=== PATIENT | male | born 1990 | race Caucasian/White ===

== ENCOUNTER 2019-06-24 12:19 | Emergency (ER) | payer OTHER ==
[2019-06-24 12:25] VITALS: BP 132/90; PULSE 113; RESP 18; TEMP 98.1
--- NOTE | 2019-06-24 12:52 | ED ---
Skin/Abscess/FB HPI - General Chief complaint: Skin/Abscess/Foreign Body Stated complaint: blotches on foot Time Seen by Provider: 06/24/19 12:37 Source: patient, RN notes reviewed Mode of arrival: ambulatory Limitations: no limitations - History of Present Illness Initial comments: 28-year-old male presents emergency Department chief complaint of rash his right foot. Patient states started over the last 24 hours states is minimally itchy but denies pain, fevers, chills or any trauma. He states it's just proximal to his toes the top of his foot. Patient does admit that he works in [employer] and states that he is exposed to oils and transmission fluids but states that he always showers did not get anything on his feet. - Related Data Previous Rx's Medication Instructions Recorded Clotrimazole/Betamethasone Dip 1 applic TOPICAL BID #45 gm 06/24/19 [Lotrisone Cream] Allergies Allergy/AdvReac Type Severity Reaction Status Date / Time amoxicillin Allergy Rash/Hives Verified 06/24/19 12:26 Review of Systems ROS Statement: Those systems with pertinent positive or pertinent negative responses have been documented in the HPI. ROS Other: All systems not noted in ROS Statement are negative. Past Medical History Past Medical History: No Reported History History of Any Multi-Drug Resistant Organisms: None Reported Past Surgical History: No Surgical Hx Reported Past Psychological History: PTSD Smoking Status: Current every day smoker Past Alcohol Use History: None Reported Past Drug Use History: Marijuana General Exam Limitations: no limitations General appearance: alert, in no apparent distress Head exam: Present: atraumatic, normocephalic, normal inspection Eye exam: Present: normal appearance, PERRL, EOMI. Absent: scleral icterus, conjunctival injection, periorbital swelling ENT exam: Present: normal exam, mucous membranes moist Neck exam: Present: normal inspection. Absent: tenderness, meningismus, lymphadenopathy Respiratory exam: Present: normal lung sounds bilaterally. Absent: respiratory distress, wheezes, rales, rhonchi, stridor Cardiovascular Exam: Present: regular rate, normal rhythm, normal heart sounds. Absent: systolic murmur, diastolic murmur, rubs, gallop, clicks Skin exam: Present: warm, dry, intact, normal color, rash (Erythematous slightly scaly rash noted to the right foot proximal to the digits) Course Vital Signs 06/24/19 12:23 Temperature 98.1 F Pulse Rate 113 H Respiratory 18 Rate Blood Pressure 132/90 O2 Sat by Pulse 98 Oximetry Medical Decision Making - Medical Decision Making Patient's rash is consistent with tinea pedis was started on Lotrisone. We discussed keeping dry foot where, follow-up in consistency with cream. Disposition Clinical Impression: Tinea pedis Disposition: HOME SELF-CARE Condition: Stable Instructions (If sedation given, give patient instructions): Athlete's Foot (ED) Additional Instructions: Please return to the Emergency Department if symptoms worsen or any other concerns. Prescriptions: Clotrimazole/Betamethasone Dip [Lotrisone Cream] 1 applic TOPICAL BID #45 gm Is patient prescribed a controlled substance at d/c from ED?: No Referrals: None,Stated [Primary Care Provider] - 1-2 days Time of Disposition: 12:52
== END 2019-06-24 12:57 | disposition home or self-care (01) ==
LOC: EC 12:19
DX: B35.3 Tinea pedis (principal); F17.200 Nicotine dependence, unspecified, uncomplicated; Z88.0 Allergy status to penicillin
CPT/HCPCS: 99282

== ENCOUNTER 2019-08-25 15:42 | Emergency (ER) | payer OTHER ==
[2019-08-25 15:50] VITALS: BP 130/85; PULSE 108; RESP 18; TEMP 98.1
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
--- NOTE | 2019-08-25 16:20 | XR ---
EXAMINATION TYPE: XR chest 2V DATE OF EXAM: 08/25/2019 COMPARISON: NONE HISTORY: Cough TECHNIQUE: FINDINGS: Heart and mediastinum are normal. Lungs are clear. Diaphragm is normal. Bony thorax appears normal. IMPRESSION: Normal chest
== END 2019-08-25 16:40 | disposition home or self-care (01) ==
LOC: EC 15:42
DX: J40 Bronchitis, not specified as acute or chronic (principal); F17.200 Nicotine dependence, unspecified, uncomplicated; Z71.6 Tobacco abuse counseling; Z88.0 Allergy status to penicillin
CPT/HCPCS: 71046; 99283

== ENCOUNTER 2020-11-25 17:41 | Emergency (ER) | payer OTHER ==
[2020-11-25 17:53] VITALS: RESP 20; TEMP 97.9
[2020-11-25] MEDS ORDERED: SODIUM CHLORIDE 0.9% 2,000 ML IV STA (18:16)
--- NOTE | 2020-11-25 18:19 | ED ---
Abdominal Pain HPI - General Chief Complaint: Abdominal Pain Stated Complaint: abd pain/bowel problems Time Seen by Provider: 11/25/20 18:13 Source: patient, RN notes reviewed Mode of arrival: ambulatory Limitations: no limitations - History of Present Illness Initial Comments: This a 30-year-old male presents emergency room chief complaint abdominal pain, nausea vomiting. Patient states that symptoms started yesterday with some pain woke up vomiting today states he has not vomited recently. He had multiple bowel movements states it's been normal for him. No dysuria no hematuria. Patient had no reported fever no cough cold-like symptoms. - Related Data Home Medications Medication Instructions Recorded Confirmed No Known Home Medications 11/25/20 11/25/20 Allergies Allergy/AdvReac Type Severity Reaction Status Date / Time amoxicillin Allergy Rash/Hives Verified 11/25/20 17:53 Review of Systems ROS Statement: Those systems with pertinent positive or pertinent negative responses have been documented in the HPI. ROS Other: All systems not noted in ROS Statement are negative. Past Medical History Past Medical History: No Reported History History of Any Multi-Drug Resistant Organisms: None Reported Past Surgical History: No Surgical Hx Reported Past Psychological History: PTSD Smoking Status: Current every day smoker Past Alcohol Use History: Rare Past Drug Use History: Marijuana General Exam Limitations: no limitations General appearance: alert, in no apparent distress Head exam: Present: atraumatic, normocephalic, normal inspection Eye exam: Present: normal appearance, PERRL, EOMI. Absent: scleral icterus, conjunctival injection, periorbital swelling ENT exam: Present: normal exam, normal oropharynx, mucous membranes moist Neck exam: Present: normal inspection, full ROM. Absent: tenderness, meningismus, lymphadenopathy Respiratory exam: Present: normal lung sounds bilaterally. Absent: respiratory distress, wheezes, rales, rhonchi, stridor Cardiovascular Exam: Present: normal rhythm, tachycardia, normal heart sounds. Absent: systolic murmur, diastolic murmur, rubs, gallop, clicks GI/Abdominal exam: Present: soft, normal bowel sounds. Absent: distended, tenderness, guarding, rebound, rigid Course Vital Signs 11/25/20 17:50 Temperature 97.9 F Pulse Rate 134 H Respiratory 20 Rate Blood Pressure 154/93 O2 Sat by Pulse 95 Oximetry Medical Decision Making - Medical Decision Making 30-year-old male presents emergency Department for nausea vomiting. Patient is well-hydrated she was found to be tachycardic. Heart rate is improved. Patient was acutely dehydrated. He states he has no symptoms currently. Patient be dis charged stable condition return parameters discussed. - Lab Data Result diagrams: 11/25/20 18:38 11/25/20 18:38 Lab Results 11/25/20 11/25/20 11/25/20 Range/Units 18:38 18:38 19:00 WBC 9.0 (3.8-10.6) k/uL RBC 4.68 (4.30-5.90) m/uL Hgb 13.1 (13.0-17.5) gm/dL Hct 38.8 L (39.0-53.0) % MCV 82.9 (80.0-100.0) fL MCH 27.9 (25.0-35.0) pg MCHC 33.7 (31.0-37.0) g/dL RDW 13.6 (11.5-15.5) % Plt Count 414 (150-450) k/uL MPV 7.0 Neutrophils % 68 % Lymphocytes % 22 % Monocytes % 7 % Eosinophils % 1 % Basophils % 1 % Neutrophils # 6.1 (1.3-7.7) k/uL Lymphocytes # 2.0 (1.0-4.8) k/uL Monocytes # 0.6 (0-1.0) k/uL Eosinophils # 0.1 (0-0.7) k/uL Basophils # 0.1 (0-0.2) k/uL Sodium 138 (137-145) mmol/L Potassium 4.1 (3.5-5.1) mmol/L Chloride 99 (98-107) mmol/L Carbon Dioxide 31 H (22-30) mmol/L Anion Gap 8 mmol/L BUN 18 (9-20) mg/dL Creatinine 0.80 (0.66-1.25) mg/dL Est GFR (CKD-EPI)AfAm >90 (>60 ml/min/1.73 sqM) Est GFR (CKD-EPI)NonAf >90 (>60 ml/min/1.73 sqM) Glucose 112 H (74-99) mg/dL Plasma Lactic Acid Marc 0.9 (0.7-2.0) mmol/L Calcium 10.1 (8.4-10.2) mg/dL Total Bilirubin 0.5 (0.2-1.3) mg/dL AST 23 (17-59) U/L ALT 24 (4-49) U/L Alkaline Phosphatase 97 (38-126) U/L Total Protein 7.4 (6.3-8.2) g/dL Albumin 4.2 (3.5-5.0) g/dL Amylase 45 (30-110) U/L Lipase 45 (23-300) U/L Disposition Clinical Impression: Gastroenteritis Disposition: HOME SELF-CARE Condition: Stable Instructions (If sedation given, give patient instructions): Abdominal Pain (ED) Additional Instructions: Please return to the Emergency Department if symptoms worsen or any other concerns. Is patient prescribed a controlled substance at d/c from ED?: No Referrals: None,Stated [Primary Care Provider] - 1-2 days Time of Disposition: 19:31
[2020-11-25 18:43] LABS: Basophils # (A) 0.1 k/uL (0-0.2); Basophils % (A) 1 %; Eosinophils # (A) 0.1 k/uL (0-0.7); Eosinophils % (A) 1 %; HCT 38.8 % (39.0-53.0); HGB 13.1 gm/dL (13.0-17.5); Lymphocytes % (A) 22 %; MCH 27.9 pg (25.0-35.0); MCHC 33.7 g/dL (31.0-37.0); MCV 82.9 fL (80.0-100.0); Monocytes # (A) 0.6 k/uL (0-1.0); Monocytes % (A) 7 %; Neutrophils # (A) 6.1 k/uL (1.3-7.7); Neutrophils % (A) 68 %; Platelet Count 414 k/uL (150-450); RBC 4.68 m/uL (4.30-5.90); RDW 13.6 % (11.5-15.5)
[2020-11-25 18:53] LABS: ALT 24 U/L (4-49); AST 23 U/L (17-59); African American GFR (CKD) >90 (>60 ml/min/1.73 sqM); Albumin 4.2 g/dL (3.5-5.0); Alkaline Phosphatase 97 U/L (38-126); Amylase 45 U/L (30-110); Anion Gap 8 mmol/L; Blood Urea Nitrogen 18 mg/dL (9-20); Calcium 10.1 mg/dL (8.4-10.2); Carbon Dioxide 31 mmol/L (22-30); Chloride 99 mmol/L (98-107); Glucose 112 mg/dL (74-99); Lipase 45 U/L (23-300); Non-African American GFR(CKD) >90 (>60 ml/min/1.73 sqM); Potassium 4.1 mmol/L (3.5-5.1); Sodium 138 mmol/L (137-145); Total Bilirubin 0.5 mg/dL (0.2-1.3); Total Protein 7.4 g/dL (6.3-8.2)
[2020-11-25 20:24] VITALS: BP 122/82; PULSE 82
== END 2020-11-25 20:28 | disposition home or self-care (01) ==
LOC: EC 17:41
DX: K52.9 Noninfective gastroenteritis and colitis, unspecified (principal); F17.200 Nicotine dependence, unspecified, uncomplicated; Z88.0 Allergy status to penicillin
CPT/HCPCS: 80053; 82150; 83605; 83690; 85025; 93005; 96360; 99284

== ENCOUNTER 2021-03-16 05:21 | Emergency (ER) | payer OTHER ==
--- NOTE | 2021-03-16 05:26 | ED ---
Overdose HPI - General Stated Complaint: Overdose Time Seen by Provider: 03/16/21 05:23 Source: RN notes reviewed, old records reviewed - History of Present Illness Initial Comments: This is a 30-year-old male to the ER for evaluation. Patient is in no has a known history of drug abuse. Patient states he did quit doing heroin about 2 months ago with did wakes up in route to the ER. Patient states is unsure on the events that occurred. He has have history of heroin abuse. Patient currently has no complaints MD Complaint: accidental overdose -: minutes(s) Intent: unwilling to say How Overdose Was Discovered: family/friend present at time Context: Intentional Overdose: drug/ETOH problems Context: Accidental Overdose: wanted to get high Treatments Prior to Arrival: narcan - Related Data Home Medications Medication Instructions Recorded Confirmed No Known Home Medications 11/25/20 11/25/20 Allergies Allergy/AdvReac Type Severity Reaction Status Date / Time amoxicillin Allergy Rash/Hives Verified 03/16/21 05:34 Review of Systems ROS Statement: Those systems with pertinent positive or pertinent negative responses have been documented in the HPI. ROS Other: All systems not noted in ROS Statement are negative. Past Medical History Past Medical History: No Reported History History of Any Multi-Drug Resistant Organisms: None Reported Past Surgical History: No Surgical Hx Reported Past Psychological History: PTSD Smoking Status: Current every day smoker Past Alcohol Use History: Rare Past Drug Use History: Marijuana General Exam General appearance: alert, in no apparent distress Head exam: Present: atraumatic, normocephalic, normal inspection Eye exam: Present: normal appearance, PERRL, EOMI. Absent: scleral icterus, conjunctival injection, periorbital swelling ENT exam: Present: normal exam, mucous membranes moist Neck exam: Present: normal inspection. Absent: tenderness, meningismus, lymphadenopathy Respiratory exam: Present: normal lung sounds bilaterally. Absent: respiratory distress, wheezes, rales, rhonchi, stridor Cardiovascular Exam: Present: regular rate, normal rhythm, normal heart sounds. Absent: systolic murmur, diastolic murmur, rubs, gallop, clicks GI/Abdominal exam: Present: soft, normal bowel sounds. Absent: distended, tenderness, guarding, rebound, rigid Extremities exam: Present: normal inspection, full ROM, normal capillary refill. Absent: tenderness, pedal edema, joint swelling, calf tenderness Back exam: Present: normal inspection Neurological exam: Present: alert, oriented X3, CN II-XII intact Psychiatric exam: Present: normal affect, normal mood Skin exam: Present: warm, dry, intact, normal color. Absent: rash Course Vital Signs 03/16/21 05:29 Temperature 97.4 F L Pulse Rate 94 Respiratory 18 Rate Blood Pressure 143/98 O2 Sat by Pulse 98 Oximetry - Reevaluation(s) Reevaluation #1: 03/16/21 05:25 Medical records reviewed Reevaluation #2: 03/16/21 05:25 Remains awake and alert, continues to deny coingestions Reevaluation #3: 03/16/21 05:25 At this time patient is not homicidal or suicidal prefers discharged home Medical Decision Making - Medical Decision Making 30 male heroin overdose. Patient seen and evaluated here in the ER. Patient can be discharged home - EKG Data -: EKG Interpreted by Me (EKG is sinus rhythm of 94 LA 138 QRS 104 QTc 455) Disposition Clinical Impression: Heroin overdose Disposition: HOME SELF-CARE Condition: Fair Instructions (If sedation given, give patient instructions): Opioid Use Disorder (ED) Is patient prescribed a controlled substance at d/c from ED?: No Referrals: None,Stated [Primary Care Provider] - 1-2 days
[2021-03-16 05:33] VITALS: TEMP 97.4
[2021-03-16 06:35] VITALS: BP 134/84; PULSE 80; RESP 16
== END 2021-03-16 06:35 | disposition home or self-care (01) ==
LOC: EC 05:21
DX: T40.1X1A Poisoning by heroin, accidental (unintentional), initial encounter (principal); F17.200 Nicotine dependence, unspecified, uncomplicated; F12.90 Cannabis use, unspecified, uncomplicated
CPT/HCPCS: 93005; 99284